=== PATIENT | female | born 2005 | race African-American/Black ===

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

== ENCOUNTER 2023-07-07 13:33 | Emergency (ER) | payer MEDICAID, OTHER ==
[~2023-07-07] VITALS: Ht 165.1 cm; Wt 77.0 kg
[~2023-07-07 13:33] MED LIST changes: +MEDR10TA MT
[2023-07-07 13:46] VITALS: BP 121/76; PULSE 82; RESP 16; TEMP 98.4; O2SAT 99
[2023-07-07 14:50] LABS: BASOPHILS % 0.3 % (0.0-2.0); EOSINOPHILS % 0.1 % (0.0-5.0); HEMATOCRIT. 36.5 % (36.0-48.0); HEMOGLOBIN. 12.6 g/dL (12.0-16.0); LYMPHOCYTES % 13.2 % (20.0-50.0); MEAN CORPUSCULAR HGB CONC 34.5 g/dL (31.0-37.0); MEAN CORPUSCULAR VOLUME 95.9 fL (81.0-99.0); MEAN PLATELET VOLUME 8.4 fl (7.4-10.4); MONOCYTES % 4.5 % (2.0-8.0); NEUTROPHILS % 81.9 % (40.0-76.0); PLATELET 335 x1000/uL (130-400); RED CELL DISTRIBUTION WIDTH 11.9 % (11.6-14.6); WHITE BLOOD COUNT 9.5 x1000/uL (4.5-11.0)
[2023-07-07 15:23] LABS: CHLORIDE 106 mEq/L (98-107); INDEX HEMOLYSI 1 (1-3); INDEX ICTERIC 1 (1-4); INDEX LIPEMIC 1 (1-3); POTASSIUM 3.8 mEq/L (3.5-5.1); SODIUM 137 mEq/L (136-145)
[2023-07-07 15:32] LABS: ALANINE AMINOTRANSFERASE 16 IU/L (13-61); ALBUMIN 4.1 g/dL (3.4-5.0); ASPARTATE AMINOTRANSFERASE 11 IU/L (15-37); BILIRUBIN TOTAL 1.3 mg/dL (0.1-1.0); CALCIUM 8.9 mg/dL (8.5-10.1); CARBON DIOXIDE 28 mEq/L (21-32); CREATININE 0.6 mg/dL (0.6-1.3); GLUCOSE 112 mg/dL (70-105); PROTEIN TOTAL 7.4 g/dL (6.0-8.3); UREA NITROGEN BLOOD 6 mg/dL (7-21)
[2023-07-07] MEDS ORDERED: ONDANSETRON 4MG ODT PO ONE (17:30)
[2023-07-07 17:41] LABS: CLARITY URINE CLOUDY (CLEAR); COLOR URINE YELLOW (YELLOW); GLUCOSE URINE NEGATIVE (NEGATIVE); KETONES URINE NEGATIVE (NEGATIVE); LEUKOCYTE ESTERASE URINE 2+ (NEGATIVE); NITRITE URINE NEGATIVE (NEGATIVE); OCCULT BLOOD URINE NEGATIVE (NEGATIVE); PH URINE 7.5 (4.5-8.0); PROTEIN URINE NEGATIVE (NEGATIVE); SPECIFIC GRAVITY URINE 1.012 (1.005-1.030)
[2023-07-07 18:17] LABS: BACTERIA URINE 2+; RBC URINE 0-2 /hpf (0-2); SQUAMOUS EPITHELIAL CELL URINE 2+ /lpf (RARE/1+)
[2023-07-07] MEDS ORDERED: NITR-87 MT (18:59)
[2023-07-07] MEDS ORDERED: ONDA4TAB11 PO (18:59)
== END 2023-07-07 19:38 | disposition home or self-care (01) ==
LOC: ER 13:33
DX: R42 Dizziness and giddiness (principal); R11.10 Vomiting, unspecified; N39.0 Urinary tract infection, site not specified; D64.9 Anemia, unspecified
CPT/HCPCS: 99284; 80053; 81003; 81025; 85025; 36415; 93005; Q0162

== ENCOUNTER 2024-03-24 11:30 | Emergency (ER) | payer OTHER ==
[~2024-03-24] VITALS: Ht 167.6 cm; Wt 54.0 kg
[~2024-03-24 11:30] MED LIST changes: +NITR-87 MT; +ONDA4TAB11 PO
[2024-03-24 11:35] VITALS: BP 158/84; TEMP 98.2; O2SAT 98
[2024-03-24 11:36] VITALS: PULSE 102; RESP 16
[2024-03-24] MEDS: DEXAMETHASONE 10 MG/ML VIAL IM NR (14:00)
== END 2024-03-24 19:20 | disposition left against medical advice (07) ==
LOC: ER 11:30
DX: J02.9 Acute pharyngitis, unspecified (principal); Z53.21 Procedure and treatment not carried out due to patient leaving prior to being seen by health care provider
CPT/HCPCS: J1100; Z7610

== ENCOUNTER 2025-06-24 10:02 | Emergency (ER) | payer SELFPAY ==
[~2025-06-24] VITALS: Ht 167.6 cm; Wt 82.0 kg
[~2025-06-24 10:02] MED LIST changes: +ONDA-239 PO; -ONDA4TAB11 PO
[2025-06-24 10:14] VITALS: TEMP 36.8; O2SAT 98
[2025-06-24] MEDS ORDERED: ACET-2708 MT (10:58)
[2025-06-24 11:32] VITALS: BP 117/90; PULSE 76; RESP 18; O2SAT 100
== END 2025-06-24 11:32 | disposition home or self-care (01) ==
LOC: ER 10:02
DX: M79.645 Pain in left finger(s) (principal); D64.9 Anemia, unspecified; Z79.899 Other long term (current) drug therapy
CPT/HCPCS: 73120; 99283